=== PATIENT | female | born 1985 | race Caucasian/White ===

== ENCOUNTER → 2019-08-27 | Outpatient (CLI) | payer OTHER ==
--- NOTE | 2019-08-27 14:15 | REP ---
Clinical: Trauma. Technique: PA and lateral. Findings: No acute fracture dislocation. Skeletal structures, joint spaces, and surrounding soft tissues appear normal. No subcutaneous emphysema or foreign body. Impression: No acute fracture or dislocation. Electronically Signed by Angel Luis Mayer MD 08/27/2019 02:07 P
== END ==
LOC: M LRY 13:05
PROVIDERS: ATTEND Physician Assistant
DX: S59.911A Unspecified injury of right forearm, initial encounter (principal); W00.9XXA Unspecified fall due to ice and snow, initial encounter; Y92.9 Unspecified place or not applicable; Y93.9 Activity, unspecified; Y99.9 Unspecified external cause status
CPT/HCPCS: 73090; G0463